=== PATIENT | female | born 1985 | race Caucasian/White ===

== ENCOUNTER 2019-03-13 05:03 | Inpatient (IN) | payer MEDICAID ==
[2019-03-13] MEDS ORDERED: CEFAZOLIN 2 GM/50 ML (PMX) 50 ML IVPB (05:30)
[2019-03-13] MEDS ORDERED: CARBOPROST 250 MCG INJ IM ×2 (05:30→18:30)
[2019-03-13] MEDS ORDERED: METHYLERGONOVINE 0.2 MG INJ IM ×2 (05:30→18:30)
[2019-03-13] MEDS ORDERED: MISOPROSTOL 200 MCG TAB PR ×2 (05:30→18:30)
[2019-03-13] MEDS ORDERED: OXYTOCIN 30 UNITS/LR 500 ML IV ×2 (05:30→18:30)
[2019-03-13 06:27] LABS: ADD MAN DIFF? NO
[2019-03-13 06:33] LABS: BASOPHILS % 0.4 % (0.0-2.0); EOSINOPHILS # 0.1 10^3/ul (0.0-0.5); EOSINOPHILS % 0.7 % (0.0-7.0); HEMATOCRIT 37.2 % (37.0-47.0); HEMOGLOBIN 12.3 g/dl (12.0-16.0); LYMPHOCYTES # 1.5 10^3/ul (0.8-2.9); MEAN CORPUSCULAR HEMOGLOBIN 29.8 pg (29.0-33.0); MEAN CORPUSCULAR HGB CONC 33.1 g/dl (32.0-37.0); MEAN CORPUSCULAR VOLUME 90.1 fl (82.0-101.0); MEAN PLATELET VOLUME 10.1 fl (7.4-10.4); MONOCYTE # 0.4 10^3/ul (0.3-0.9); MONOCYTES % 5.8 % (0.0-11.0); NEUTROPHIL # 4.8 10^3/ul (1.6-7.5); NEUTROPHILS % 70.5 % (39.0-77.0); PLATELET COUNT 197 10^3/UL (140-415); RED BLOOD COUNT 4.13 10^6/ul (4.20-5.40); RED CELL DISTRIBUTION WIDTH 14.1 % (11.5-14.5)
[2019-03-13 06:33] LABS: WHITE BLOOD COUNT 6.9 10^3/ul (4.8-10.8)
[2019-03-13 06:48] LABS: INR 0.94; PARTIAL THROMBOPLASTIN TIME 24.1 Sec (23.0-35.0); PROTIME 12.7 Sec (11.9-14.9)
[2019-03-13] MEDS: LACTATED RINGER'S 1,000 ML IV ×2 (07:28→07:30)
[2019-03-13 07:35] LABS: HEPATITIS B SURFACE ANTIGEN NEGATIVE (NEGATIVE)
[2019-03-13] MEDS ORDERED: OXYTOCIN 10 UNIT INJ (13:00)
[2019-03-13] MEDS ORDERED: DEXAMETHASONE 4 MG/ML 1 ML INJ (13:44)
[2019-03-13] MEDS ORDERED: morphine SULFATE/PF (10 MG/10 ML) INJ (13:44)
[2019-03-13] MEDS ORDERED: ONDANSETRON 4 MG INJ (13:44)
[2019-03-13] MEDS ORDERED: PHENYLephrine (100 MCG/ML) 10ML SYG (13:48)
[2019-03-13] MEDS ORDERED: ONDANSETRON 4 MG INJ IV (15:00)
[2019-03-13] MEDS ORDERED: HYDROmorphONE 0.5 MG/0.5 ML SYG IV ×2 (15:00)
[2019-03-13] MEDS ORDERED: NALOXONE (0.4 MG/ML) INJ IV (15:00)
[2019-03-13] MEDS ORDERED: ZOLPIDEM 5 MG TAB PO (15:00)
[2019-03-13] MEDS: OXYTOCIN 30 UNITS/LR 500 ML IV ×2 (15:27→19:17)
[2019-03-13 16:31] LABS: RAPID PLASMA REAGIN NONREACTIVE (NR)
[2019-03-13] MEDS: DEXTROSE 5%-LR 1,000 ML IV (18:16)
[2019-03-13] MEDS ORDERED: LANOLIN HPA 1 PKT TOP (18:30)
[2019-03-13] MEDS ORDERED: METHYLERGONOVINE 0.2 MG TAB PO (18:30)
[2019-03-13] MEDS: IBUPROFEN 800 MG TAB PO ×2 (18:30→18:48)
[2019-03-13] MEDS: SENNA/DOCUSATE NA (8.6MG/50MG) TAB PO (21:00)
[2019-03-13] MEDS: KETOROLAC 30 MG INJ IV (21:10)
[2019-03-13] MEDS: DIPHENHYDRAMINE 50 MG INJ IV (21:10)
[2019-03-14] MEDS: DEXTROSE 5%-LR 1,000 ML IV ×2 (02:16→10:16)
[2019-03-14] MEDS: LACTATED RINGER'S 1,000 ML IV ×2 (02:39→10:30)
[2019-03-14] MEDS: KETOROLAC 30 MG INJ IV (07:37)
[2019-03-14] MEDS: DIPHENHYDRAMINE 50 MG INJ IV (08:02)
[2019-03-14 08:48] LABS: ADD MAN DIFF? NO
[2019-03-14 08:50] LABS: BASOPHILS % 0.3 % (0.0-2.0); EOSINOPHILS # 0.1 10^3/ul (0.0-0.5); EOSINOPHILS % 0.5 % (0.0-7.0); HEMATOCRIT 30.4 % (37.0-47.0); LYMPHOCYTES # 2.1 10^3/ul (0.8-2.9); LYMPHOCYTES % 22.1 % (15.0-51.0); MEAN CORPUSCULAR HGB CONC 32.9 g/dl (32.0-37.0); MEAN CORPUSCULAR VOLUME 91.3 fl (82.0-101.0); MEAN PLATELET VOLUME 10.4 fl (7.4-10.4); MONOCYTE # 0.6 10^3/ul (0.3-0.9); MONOCYTES % 6.1 % (0.0-11.0); NEUTROPHIL # 6.6 10^3/ul (1.6-7.5); NEUTROPHILS % 70.6 % (39.0-77.0); PLATELET COUNT 174 10^3/UL (140-415); RED BLOOD COUNT 3.33 10^6/ul (4.20-5.40); RED CELL DISTRIBUTION WIDTH 14.2 % (11.5-14.5)
[2019-03-14 08:50] LABS: WHITE BLOOD COUNT 9.3 10^3/ul (4.8-10.8)
[2019-03-14] MEDS: SENNA/DOCUSATE NA (8.6MG/50MG) TAB PO ×2 (09:21→21:20)
[2019-03-14] MEDS ORDERED: DIPHTH/TET/ACEL PERTUSS (ADULT) 0.5 ML VIAL IM* (11:00)
[2019-03-14] MEDS: HYDROCODONE/APAP (5/325) TAB GTB ×2 (13:55→21:20)
[2019-03-14] MEDS: IBUPROFEN 800 MG TAB PO ×2 (13:55→21:20)
[2019-03-15] MEDS: MAGNESIUM HYDROXIDE 30ML CUP PO (00:30)
[2019-03-15] MEDS: HYDROCODONE/APAP (5/325) TAB GTB ×2 (05:31→13:12)
[2019-03-15] MEDS: IBUPROFEN 800 MG TAB PO ×3 (05:31→21:21)
[2019-03-15] MEDS: SENNA/DOCUSATE NA (8.6MG/50MG) TAB PO ×2 (09:45→21:20)
[2019-03-15] MEDS: HYDROCODONE/APAP (5/325) TAB NGT (17:10)
[2019-03-15] MEDS: HYDROCODONE/APAP (5/325) TAB PO (21:20)
[2019-03-16] MEDS: HYDROCODONE/APAP (5/325) TAB PO ×3 (03:11→13:43)
[2019-03-16] MEDS: IBUPROFEN 800 MG TAB PO ×2 (05:39→13:43)
[2019-03-16] MEDS: MEASLES,MUMPS,RUBELLA VACCINE INJ SC* (09:00)
[2019-03-16] MEDS: SENNA/DOCUSATE NA (8.6MG/50MG) TAB PO (09:11)
[2019-03-16] MEDS: DIPHTH/TET/ACEL PERTUSS (ADULT) 0.5 ML VIAL IM* (11:23)
== END 2019-03-16 15:40 | disposition home or self-care (01) | DRG 785 ==
LOC: L-D 05:03 → PP1 17:48
PROVIDERS: Obstetrics & Gynecology
PROC: 10D00Z1 Extraction of Products of Conception, Low, Open Approach (ICD-10-PCS; principal; 2019-03-13 12:30)
PROC: 0UL70ZZ Occlusion of Bilateral Fallopian Tubes, Open Approach (ICD-10-PCS; 2019-03-13 12:30)
DX: O65.5 Obstructed labor due to abnormality of maternal pelvic organs (principal); O34.211 Maternal care for low transverse scar from previous cesarean delivery; O13.4 Gestational [pregnancy-induced] hypertension without significant proteinuria, complicating childbirth; Z3A.39 39 weeks gestation of pregnancy; Z37.0 Single live birth; Z30.2 Encounter for sterilization
CPT/HCPCS: 85025; 85610; 85730; 86592; 86850; 86900; 86901; 87340; 88302; 90715; 99464